=== PATIENT | male | born 1945 | race Caucasian/White ===

== ENCOUNTER → 2018-09-26 | Outpatient (CLI) | payer OTHER ==
[~2018-09-26] MED LIST: AMLO2.5T3 PO; ASPI-1197 PO; FINA5TAB41 PO; GLIP1TAB6 PO; LOSA100T20 PO; OMEP20TA25 PO; TAMS-1 PO
== END | disposition home or self-care (01) ==
LOC: OIH 16:05
PROVIDERS: ATTEND Internal Medicine
DX: I70.0 Atherosclerosis of aorta (principal); I10 Essential (primary) hypertension; E11.9 Type 2 diabetes mellitus without complications; Z72.89 Other problems related to lifestyle
CPT/HCPCS: 71046